=== PATIENT | female | born 1965 | race African-American/Black ===

== ENCOUNTER 2020-03-28 18:11 | Outpatient (CLI) | payer BC, SELFPAY ==
--- NOTE | ~2020-03-28 | XR_ITS ---
EXAMINATION: XR chest 2V EXAM DATE: 03/28/2020 18:31 INDICATION: Asthma. Cough for 3 months. TECHNIQUE: Frontal and lateral projections of the chest obtained and reviewed. Comparison is made to prior examination from 05/17/2019. FINDINGS: The lungs are clear. There are no pleural effusions. The cardiomediastinal silhouette is within normal limits. There is no pneumothorax suspected. The bones and soft tissues are unremarkab le. IMPRESSION: No acute cardiopulmonary findings. Reviewed, dictated and finalized at location A.
== END 2020-03-28 18:12 | disposition home or self-care (01) ==
PROVIDERS: PCP Internal Medicine; Visit Provider Internal Medicine
DX: J45.909 Unspecified asthma, uncomplicated (principal)
CPT/HCPCS: 71046

== ENCOUNTER 2020-06-12 11:33 | Outpatient (CLI) | payer BC, SELFPAY ==
--- NOTE | ~2020-06-12 | MM_ITS ---
EXAMINATION: MM screening alyse BI w linda HISTORY: Screening mammogram TECHNIQUE: Craniocaudal and mediolateral oblique 3-D tomosynthesis images were obtained and synthetic 2-D images were generated. Bilateral rotated lateral cc views. ...CAD analysis was submitted and int erpreted. COMPARISON: 12/14/2017, 07/18/2015, 05/30/2014 bilateral digital screening mammogram examinations BREAST PARENCHYMAL COMPOSITION: The breasts are heterogeneously dense, which may obscure small masses . FINDINGS: There is no evidence of suspicious mass, calcification, or architectural distortion to sugg est malignancy in either breast. There has been no suspicious interval change. IMPRESSION: 1. No mammographic evidence of malignancy. 2. Recommend routine screening mammography in one year. BI-RADS Category 1: Negative Reviewed, dictated and finalized at location A. 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
== END 2020-06-12 11:34 | disposition home or self-care (01) ==
PROVIDERS: PCP Internal Medicine; Visit Provider Obstetrics & Gynecology
DX: Z12.31 Encounter for screening mammogram for malignant neoplasm of breast (principal)
CPT/HCPCS: 77063; 77067

== ENCOUNTER 2020-09-25 16:26 | Outpatient (CLI) | payer BC, SELFPAY | END 2020-09-25 16:27 | disposition home or self-care (01) | LOC: ANHCOVIDVC 16:26 | PROVIDERS: PCP Internal Medicine | DX: Z23 Encounter for immunization (principal) | CPT/HCPCS: 0001A; 91300 ==

== ENCOUNTER 2020-10-16 16:29 | Outpatient (CLI) | payer BC, SELFPAY | END 2020-10-16 16:30 | disposition home or self-care (01) | LOC: ANHCOVIDVC 16:29 | PROVIDERS: PCP Internal Medicine | DX: Z23 Encounter for immunization (principal) | CPT/HCPCS: 0002A; 91300 ==

== ENCOUNTER 2021-03-05 02:05 | Day surgery (SDC) | payer BC, SELFPAY ==
[2021-03-05 08:05] VITALS: BP 132/73; PULSE 89; RESP 20; TEMP 36.3; O2SAT 99; BMI 33.9
[2021-03-05] MEDS: LACTATED RINGERS 1,000 ML 150 ML IV CONT (08:20)
--- NOTE | 2021-03-05 08:24 | WPDGICN ---
Assessment and Plan Assessment and plan (1) Encounter for screening colonoscopy: Code(s): Z12.11 - Encounter for screening for malignant neoplasm of colon Status: Acute Assessment and Plan: Patient presents for screening colonoscopy. Further recommendations will be given after endoscopy. GI Consult Note Consult date/time: 03/05/21 08:24 HPI: Radha Fay is a 55 year old female Presents for screening colonoscopy. Patient's last exam was 10 years ago. Patient states that her current weight appetite bowel movements are normal. Patient denies abdominal pain. She has had no bleeding. Family history is noncontributory. Review of Systems Review of Systems: All systems reviewed & are unremarkable except as noted in HPI and below PMFSH Past Medical History Medical History Acid reflux Elevated lipids Ganglion cyst Hypertension Migraines Surgical History Surgical History H/O left wrist surgery H/O shoulder surgery History of appendectomy History of breast biopsy History of hysterectomy, supracervical [place] teeth removed Family History Family History Mother Hypertension Sibling Hypertension Family history of glaucoma Other Family history of malignant neoplasm of breast Social History Social History (Updated 11/26/20 @ 10:08 by Nickie Castillo MA) Smoking status: Never smoker Second hand tobacco smoke exposure: No Alcohol intake: former Drinks per week: 1 Substance use: never Living arrangements: with family Gender identity (if verbalized by the patient): Female Spiritual care concerns: No Meds Home Medications and Allergies Home Medications Medication Instructions Recorded Confirmed Type [id number] ac 400 1 tablet PO DAILY 09/26/19 02/20/21 History mcg-calcium carb 500 mg-vit K1 20 mcg tablet azelastine 137 mcg (0.1 %) nasal 137 mcg NASAL Q12H PRN 90 Days #90 11/17/19 02/20/21 Rx spray aerosol ml fluticasone propionate 50 1 spray NASAL BID PRN 90 Days 11/17/19 02/20/21 Rx mcg/actuation nasal #54.6 ml spray,suspension cetirizine 10 mg capsule 10 mg PO DAILY 10/10/20 02/20/21 History hydrochlorothiazide 12.5 mg tablet 12.5 mg PO DAILY #90 tablet 11/26/20 02/20/21 Rx losartan 100 mg tablet 100 mg PO DAILY #90 tablet 11/26/20 02/20/21 Rx omeprazole 40 mg capsule,delayed 40 mg PO DAILY #90 cap 11/26/20 02/20/21 Rx release potassium chloride 20 mEq 20 meq PO DAILY #90 tablet 11/26/20 02/20/21 Rx tablet,extended release cyclobenzaprine 5 mg tablet 5 mg PO TID PRN #90 tablet 12/02/20 02/20/21 Rx cholecalciferol (vitamin D3) 50,000 unit PO WEEKLY 02/20/21 02/20/21 History albuterol sulfate 90 mcg/actuation 2 puff INHALATION Q6H PRN #8.5 gm 02/28/21 Rx aerosol inhaler benzonatate 200 mg capsule 200 mg PO TID PRN #90 cap 02/28/21 Rx Allergies Allergy/AdvReac Type Severity Reaction Status Date / Time codeine Allergy Unknown Dizziness Verified 03/05/21 08:04 morphine Allergy Unknown Dizziness Verified 03/05/21 08:04 Vital Signs Vital Signs - 24 hr 03/05/21 08:05 Temperature 97.4 F L Pulse Rate 89 Respiratory Rate 20 Blood Pressure 132/73 Pulse Oximetry 99 Exam Narrative: Physical exam reveals patient be alert. Vital signs are stable. HEENT exam is unremarkable. Patient is anicteric. Lungs are clear to auscultation and percussion. Heart is without murmur or extra sounds. Abdominal exam bowel sounds are present soft nontender with no organomegaly.
--- NOTE | 2021-03-05 08:31 | WPDANESEPPF ---
Anes - Initial Pre Proc Eval Procedure: Operation Date: 03/05/21 09:15 Proposed Procedures p Screening Colonoscopy - Lei Lyles MD Date/Time: 03/05/21 08:31 Surgeon: Lei Lyles MD Pre Op Diagnosis: neoplasm screening Patient Data Age: 55 Gender: F Height: 1.68 m Weight: 95.4 kg Last Vital Signs Temp 36.3 C L 03/05/21 08:05 Pulse 89 03/05/21 08:05 Resp 20 03/05/21 08:05 BP 132/73 03/05/21 08:05 Pulse Ox 99 03/05/21 08:05 Allergies Allergy/AdvReac Type Severity Reaction Status Date / Time codeine Allergy Unknown Dizziness Verified 03/05/21 08:04 morphine Allergy Unknown Dizziness Verified 03/05/21 08:04 Home Medications Medication Instructions Recorded Confirmed Type [id number]-[id number] ac 400 1 tablet PO DAILY 09/26/19 02/20/21 History mcg-calcium carb 500 mg-vit K1 20 mcg tablet azelastine 137 mcg (0.1 %) nasal 137 mcg NASAL Q12H PRN 90 Days #90 11/17/19 02/20/21 Rx spray aerosol ml fluticasone propionate 50 1 spray NASAL BID PRN 90 Days 11/17/19 02/20/21 Rx mcg/actuation nasal #54.6 ml spray,suspension cetirizine 10 mg capsule 10 mg PO DAILY 10/10/20 02/20/21 History hydrochlorothiazide 12.5 mg tablet 12.5 mg PO DAILY #90 tablet 11/26/20 02/20/21 Rx losartan 100 mg tablet 100 mg PO DAILY #90 tablet 11/26/20 02/20/21 Rx omeprazole 40 mg capsule,delayed 40 mg PO DAILY #90 cap 11/26/20 02/20/21 Rx release potassium chloride 20 mEq 20 meq PO DAILY #90 tablet 11/26/20 02/20/21 Rx tablet,extended release cyclobenzaprine 5 mg tablet 5 mg PO TID PRN #90 tablet 12/02/20 02/20/21 Rx cholecalciferol (vitamin D3) 50,000 unit PO WEEKLY 02/20/21 02/20/21 History albuterol sulfate 90 mcg/actuation 2 puff INHALATION Q6H PRN #8.5 gm 02/28/21 Rx aerosol inhaler benzonatate 200 mg capsule 200 mg PO TID PRN #90 cap 02/28/21 Rx Patient hx anesthesia problems: none Family hx anesthesia problems: none PMFSH Past Medical History Medical History Acid reflux Elevated lipids Ganglion cyst Hypertension Migraines Surgical History Surgical History H/O left wrist surgery H/O shoulder surgery History of appendectomy History of breast biopsy History of hysterectomy, supracervical [place] teeth removed Family History Family History Mother Hypertension Sibling Hypertension Family history of glaucoma Other Family history of malignant neoplasm of breast Social History Social History Smoking status: Never smoker Second hand tobacco smoke exposure: No Alcohol intake: former Drinks per week: 1 Substance use: never Living arrangements: with family Gender identity (if verbalized by the patient): Female Spiritual care concerns: No Anes - Eval Final PreProcedure Day of Procedure 03/05/21 08:31 Patient weight: obese Heart: regular rate and rhythm Lungs: clear to auscultation Airway: Mallampati scale class II Neurological: alert and oriented Last oral intake: >/= 8 hours ASA classification: III Emergent: no Anesthetic plan: proceed Anesthesia type and monitoring: general GIVS and standard monitoring Informed Consent: The patient's anesthetic plan and its attendant risks and benefits were discussed with the patient/family/POA. Questions were solicited and answers provided to the satisfaction of the patient/family/POA.
[2021-03-05 09:16] VITALS: BP 118/72; PULSE 82; RESP 18; O2SAT 99
[2021-03-05 09:26] VITALS: BP 123/76; PULSE 78; RESP 18; O2SAT 100
[2021-03-05 09:36] VITALS: BP 115/63; PULSE 77; RESP 17; O2SAT 100
== END 2021-03-05 09:54 | disposition home or self-care (01) ==
PROVIDERS: PCP Internal Medicine; Visit Provider Internal Medicine Gastroenterology
PROC: 0DJD8ZZ Inspection of Lower Intestinal Tract, Via Natural or Artificial Opening Endoscopic (ICD-10-PCS; CPT 45378; principal; 2021-03-05 09:15)
DX: Z12.11 Encounter for screening for malignant neoplasm of colon (principal); D12.2 Benign neoplasm of ascending colon; D12.3 Benign neoplasm of transverse colon; K57.30 Diverticulosis of large intestine without perforation or abscess without bleeding; K64.8 Other hemorrhoids; K21.9 Gastro-esophageal reflux disease without esophagitis; I10 Essential (primary) hypertension; Z79.51 Long term (current) use of inhaled steroids; E66.9 Obesity, unspecified; Z68.33 Body mass index [BMI] 33.0-33.9, adult
CPT/HCPCS: 45385; 88305; J2704; J7120

== ENCOUNTER 2021-07-08 07:56 | Outpatient (CLI) | payer BC, SELFPAY ==
--- NOTE | ~2021-07-08 | MM_ITS ---
EXAMINATION: MM screening [facility] BI w linda HISTORY: Screening mammogram TECHNIQUE: Craniocaudal and mediolateral oblique 3-D tomosynthesis images were obtained and synthetic 2-D images were generated. CAD analysis was submitted and interpreted. COMPARISON: 06/12/2020, 12/05/1917, 07/18/2015 BREAST PARENCHYMAL COMPOSITION: The breasts are heterogeneously dense, which may obscure small masses . FINDINGS: RIGHT BREAST: There is no evidence of suspicious mass, calcification, or architectural distortion to suggest malignancy. There has been no significant interval change. LEFT BREAST: There is a round obscured mass best appreciated in the middle third of the breast just a dio the nipple axis IV.3 cm from the nipple on mediolateral oblique tomosynthesis image 41/85. IMPRESSION: 1. Left breast mass. 2. Additional mammographic views and possible breast ultrasound are recommended. BI-RADS Category 0: Incomplete: Needs additional imaging evaluation. Reviewed, dictated and finalized at location A. FITTER IMPRESSION: 1. Left breast mass. 2. Additional mammographic views and possible breast ultrasound are recommended . BI-RADS Category 0: Incomplete: Needs additional imaging evaluation.
== END 2021-07-08 07:57 | disposition home or self-care (01) ==
PROVIDERS: PCP Internal Medicine; Visit Provider Obstetrics & Gynecology
DX: Z12.31 Encounter for screening mammogram for malignant neoplasm of breast (principal); R92.8 Other abnormal and inconclusive findings on diagnostic imaging of breast
CPT/HCPCS: 77063; 77067

== ENCOUNTER 2021-07-29 12:20 | Outpatient (CLI) | payer BC, SELFPAY ==
--- NOTE | ~2021-07-29 | MMUS_ITS ---
EXAMINATION: MM diagnostic alyse LT w lidna, US breast LT complete HISTORY: Follow-up left breast mass TECHNIQUE: Additional 3-D tomosynthesis images of the left breast were performed and synthetic 2-D im ages were generated. CAD analysis was submitted and interpreted. High resolution complete left breast ultrasound was performed. COMPARISON: Comparison to multiple prior studies sequentially, with oldest reviewed study dated 05/19. BREAST PARENCHYMAL COMPOSITION: The breasts are heterogenously dense, which may obscure small masses. FINDINGS: MAMMOGRAPHIC FINDINGS: There is a small mass in the upper aspect of the left breast anteriorly. There are no suspicious calc ifications or architectural distortion. ULTRASOUND: Complete bilateral US of all 4 quadrants of the left and retroareolar region was reviewed. There are multiple simple cyst of the left breast, largest measuring 9 mm at 12:00, 3 cm from the nipple. No green spicious masses to suggest malignancy. IMPRESSION: 1. No evidence for malignancy in the left breast. Benign cysts. 2. Routine yearly screening mammogram and regular clinical breast examination are recommended. BI-RADS Category 2: Benign finding(s). Reviewed, dictated and finalized at location A. 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 No evidence for malignancy in the left breast. Benign cysts. 2. Routine yearly screening mammogram and regular clinical breast examination a re recommended. BI-RADS Category 2: Benign finding(s).
== END 2021-07-29 12:21 | disposition home or self-care (01) ==
PROVIDERS: PCP Internal Medicine; Visit Provider Obstetrics & Gynecology
DX: R92.8 Other abnormal and inconclusive findings on diagnostic imaging of breast (principal)
CPT/HCPCS: 76641; 77061; 77065; G0279

== ENCOUNTER 2022-10-21 08:38 | Outpatient (CLI) | payer BC, SELFPAY ==
--- NOTE | ~2022-10-21 | MM_ITS ---
EXAMINATION: MM screening alyse BI w linda HISTORY: Screening mammogram TECHNIQUE: Craniocaudal and mediolateral oblique 3-D tomosynthesis images were obtained and synthetic 2-D images were generated. CAD analysis was submitted and interpreted. COMPARISON: 07/29/2021 diagnostic left mammogram and complete left breast ultrasound 07/08/2021, 06/12/2020 bilateral screening mammogram examinations BREAST PARENCHYMAL COMPOSITION: The breasts are heterogeneously dense, which may obscure small masses . FINDINGS: There is no evidence of suspicious mass, calcification, or architectural distortion to sugg est malignancy in either breast. There has been no suspicious interval change. IMPRESSION: 1. No mammographic evidence of malignancy. 2. Recommend routine screening mammography in one year. BI-RADS Category 1: Negative Reviewed, dictated and finalized at location A.
== END 2022-10-21 08:39 | disposition home or self-care (01) ==
LOC: ANHIMG 08:41
PROVIDERS: PCP Internal Medicine; Visit Provider Obstetrics & Gynecology
DX: Z12.31 Encounter for screening mammogram for malignant neoplasm of breast (principal)
CPT/HCPCS: 77063; 77067

== ENCOUNTER 2023-02-18 09:18 | Outpatient (CLI) | payer BC, SELFPAY ==
--- NOTE | ~2023-02-18 | US_ITS ---
Limited Abdominal Sonogram: Real-time sonographic imaging of the right upper quadrant was performed. Clinical History: Right upper quadrant pain Findings: The liver appears echogenic, with no evidence of mass lesion or bile duct dilatation. Main portal vein demonstrates normal direction of flow. The gallbladder is well distended, and appears no rmal with no evidence of gallstone or wall thickening. The common bile duct measures 5 mm. The visua lized pancreas, aorta, and IVC are unremarkable. Impression: Diffuse fatty infiltration of liver. Reviewed, dictated and finalized at location M. Impression: Diffuse fatty infiltration of liver.
== END 2023-02-18 09:19 | disposition home or self-care (01) ==
PROVIDERS: PCP Family Medicine; Visit Provider Nurse Practitioner Family
DX: R10.11 Right upper quadrant pain (principal); K76.0 Fatty (change of) liver, not elsewhere classified
CPT/HCPCS: 76705

== ENCOUNTER 2023-06-14 12:41 | Outpatient (CLI) | payer BC, SELFPAY ==
--- NOTE | ~2023-06-14 | XR_ITS ---
EXAMINATION: XR chest 2V 06/14/2023 14:16 INDICATION: Shortness of breath PROCEDURE: 2 view chest COMPARISON: 03/28/2020 FINDINGS: The lungs are clear. The cardiomediastinal silhouette is within normal limits. There are no pleural effusions. There is no pneumothorax suspected. Calcified granuloma right lung base. IMPRESSION: 1: NO ACUTE CARDIOPULMONARY DISEASE. Reviewed, dictated and finalized at location B. ADVOCATE
--- NOTE | 2023-06-14 12:44 | ECHO_ITS ---
Patient Info Name: Radha Fay Age: 58 years : 1965 Gender: Female Ht: 67 in Wt: 211 lbs BSA: 2.16 m2 HR: 88 bpm BP: 133 / 92 mmHg Heart Rhythm: Sinus Rhythm Technical Quality: Fair Exam Date: 06/14/2023 12:48 PM Exam Location: Echo Lab Patient Status: Outpatient Admit Date: 06/14/2023 Staff Ordering Physician: Marcy Barrios APRN Towboat Engineer: Kelly Brunner RDCS Attending Provider: Marcy Barrios APRN Referring Physician: Sophie NAYAK; Exam Type: CA echo doppler color flow Study Info Indications R06.02 - Shortness of breath Complete two-dimensional, color flow and Doppler transthoracic echocardiogram is performed. Summary 1. Complete two-dimensional, color flow and Doppler transthoracic echocardiogram is performed. 2. Left ventricular chamber dimension is normal. 3. Left ventricular systolic function is normal, estimated at 60-65%. 4. The left ventricular diastolic function is grade I diastolic dysfunction. 5. E/e' 11 is mildly elevated. 6. There is mild aortic valve sclerosis. 7. There is trace mitral valve regurgitation. 8. There is trace tricuspid valve regurgitation. 9. No pulmonary hypertension, estimated pulmonary arterial systolic pressure is 32 mmHg. 10. There is trace pulmonic regurgitation. Left Ventricle E/e' 11 is mildly elevated. Left ventricular chamber dimension is normal. Left ventricular systolic function is normal, estimated at 60-65%. The left ventricular diastolic function is grade I diastolic dysfunction. Right Ventricle Right ventricular systolic function is normal and with normal TAPSE 3.0 cm. Right ventricular chamber dimension is normal. Left Atria Left atrial chamber dimension is normal. Right Atria Right atrial chamber dimension is normal. Aortic Valve The aortic valve is trileaflet. There is mild aortic valve sclerosis. There is no aortic valve stenosis. There is no aortic valve regurgitation. Pulmonic Valve There is trace pulmonic regurgitation. Mitral Valve There is no mitral valve stenosis. There is trace mitral valve regurgitation. Tricuspid Valve There is trace tricuspid valve regurgitation. No pulmonary hypertension, estimated pulmonary arterial systolic pressure is 32 mmHg. Pericardium/Pleural There is no pericardial effusion. Inferior Vena Cava Normal inferior vena cava with >50% collapse upon inspiration consistent with normal right atrial pressure, 5 mmHg. Aorta The aortic root size at the sinus of Valsalva is normal. Left Ventricular Outflow Tract Name Value Normal LVOT 2D LVOT Diameter 2.0 cm LVOT Doppler LVOT Peak Gradient 5 mmHg LVOT Mean Gradient 2 mmHg LVOT VTI 21 cm LVOT VTI/AV VTI Ratio 0.5 LVOT Stroke Volume 65 ml LVOT CO 4.5 l/min LVOT CI 2.1 l/min/m2 Pulmonic Valve Name Value Normal RVOT Doppler
== END 2023-06-14 12:42 | disposition home or self-care (01) ==
LOC: ANHCARD 12:42
PROVIDERS: PCP Nurse Practitioner Family; Visit Provider Nurse Practitioner Family
DX: R06.02 Shortness of breath (principal); R07.9 Chest pain, unspecified
CPT/HCPCS: 71046; 93306

== ENCOUNTER 2023-06-25 10:10 | Outpatient (CLI) | payer BC, SELFPAY ==
--- NOTE | 2023-06-29 11:10 | WPDPFTINT ---
PFT Procedure Performed PFT Procedure Performed Spirometry with Pre/Post Bronchodilator Plethysmography (Lung Vol) Diffusing Cap (DLCO) PFT Interpretation DOS: 06/25/2023 REQUESTING: Marcy Barrios APRN REASON FOR TESTING: shortness of breath PULMONARY FUNCTION TESTS Results are reliable and reproducible. Spirometry: pre bronchodilator FEV1 is 2.19 L, 92% predicted, normal. Pre bronchodilator FVC 2.46 L, 82%, normal. FEV1/ FVC ratio 89%. After bronchodilator administration there was a 14% drop in the FEV1, there is an 11% increase in the FVC. Post bronchodilator FVC is 2.74 L, 91% predicted. After bronchodilator the FEV1 is 1.87 L, 79% predicted. The FEV1 /FVC ratio is 68%. Lung volumes: Total lung capacity 3.54 L, 73% predicted, low consistent with mild restriction. Residual volume 1.07 L, 54%, below normal. RV / TLC is 30%, low end of normal. Diffusion: DLCO is 13.5, 59% consistent with moderate diffusion impairment. DLCO / VA is 5.17, 120%, normal range. Flow volume loop: The flow volume loop is not reproducible. IMPRESSION: This study shows normal spirometry with a paradoxical drop in flows after bronchodilator administration, mild restriction which is new and a moderate decrease in diffusion. Compared to a prior study 10/27/2011, spirometry is similar including a paradoxical drop in flows after bronchodilator, restriction is new, and the decrease in diffusion has progressed mildly. The FEV1 was 2.47 L, 87% predicted, the FVC was 2.90 L, 78% predicted with a normal FEV1/ FVC ratio 85%. After bronchodilator, there was a 8% drop in the FEV1, similarly she had a drop of 14% in FEV1 on the current test. The total lung capacity was 4.86 L, 87%, showing a greater than expected drop in the total lung capacity on the current test. The residual volume was 80% predicted now 54% predicted and the RV/TLC was slightly low 32%, currently 30% so also low. Diffusion is lower now, was 65% predicted now 59% predicted. There is correction for alveolar volume both in the past and now. Bailee Redd MD
== END 2023-06-25 10:11 | disposition home or self-care (01) ==
LOC: ANHPFT 10:11
PROVIDERS: PCP Nurse Practitioner Family; Visit Provider Nurse Practitioner Family
DX: R06.02 Shortness of breath (principal)
CPT/HCPCS: 94060; 94726; 94729

== ENCOUNTER 2023-08-03 08:35 | Outpatient (CLI) | payer BC, SELFPAY ==
--- NOTE | ~2023-08-03 | CT_ITS ---
CT Scan of the Chest without Contrast: Clinical Indication: Other disorder of lung Technique: Contiguous sections were acquired throughout the chest without intravenous contrast. Dose reduction technique was used on this scan by utilizing automated exposure control and iterative recon struction technique. The dose-length product (DLP) was 282.67 mGy-cm. Findings: There is no evidence of any significant mediastinal, hilar or axillary lymphadenopathy. Calcified med iastinal lymph nodes are noted. The mediastinal soft tissues otherwise appear normal. There is no evidence of pleural or pericardial effusion. The lungs are clear, aside from calcified right basilar granuloma. Images through the upper abdomen reveal no abnormalities. Impression: No acute abnormality. Evidence of prior granulomatous disease. Reviewed, dictated and finalized at location . NESS DEVELOPMENT SPECIALIST Impression: No acute abnormality. Evidence of prior granulomatous disease.
== END 2023-08-03 08:36 | disposition home or self-care (01) ==
LOC: ANHIMG 08:37
PROVIDERS: PCP Nurse Practitioner Family; Visit Provider Physician Assistant
DX: J98.4 Other disorders of lung (principal)
CPT/HCPCS: 71250

== ENCOUNTER 2023-10-08 13:58 | Outpatient (CLI) | payer BC, SELFPAY ==
--- NOTE | ~2023-10-08 | MM_ITS ---
EXAMINATION: MM screening [facility] BI w linda HISTORY: Screening TECHNIQUE: Craniocaudal and mediolateral oblique 3-D tomosynthesis images were obtained and synthetic 2-D images were generated. CAD analysis was submitted and interpreted. COMPARISON: Comparison to multiple prior studies sequentially, with oldest reviewed study dated 06/20. BREAST PARENCHYMAL COMPOSITION: Dense: The breasts are heterogeneously dense, which may obscure small masses FINDINGS: There is a new mass in the upper central aspect of the left breast which is obscured by fib roglandular tissue. The right breast is stable without evidence for malignancy. IMPRESSION: 1. New left breast mass. 2. Additional mammographic views and possible breast ultrasound are recommended. BI-RADS Category 0: Incomplete: Needs additional imaging evaluation. Reviewed, dictated and finalized at location A. IMPRESSION: 1. New left breast mass. 2. Additional mammographic views and possible breast ultrasound are recommended . BI-RADS Category 0: Incomplete: Needs additional imaging evaluation.
== END 2023-10-08 13:59 | disposition home or self-care (01) ==
LOC: ANHIMG 14:02
PROVIDERS: PCP Nurse Practitioner Family; Visit Provider Obstetrics & Gynecology
DX: Z12.31 Encounter for screening mammogram for malignant neoplasm of breast (principal); R92.8 Other abnormal and inconclusive findings on diagnostic imaging of breast
CPT/HCPCS: 77063; 77067

== ENCOUNTER 2023-10-28 08:49 | Outpatient (CLI) | payer BC, SELFPAY ==
--- NOTE | ~2023-10-28 | DEXA_ITS ---
Bone Density Report Name: EDA JOSE Age: 58 Sex: Female Ethnicity: White Date of : 1965 Indication: postmenopausal; screening for osteoporosis; height loss; hysterectomy; Referring Provider: MAME RENTERIA Study: Bone densitometry was performed. Exam Date: October 28, 2023 Accession number: [id number] Bone Density: Region BMD T-score Z-score Classification AP Spine(L1-L4) 1.041 -0.1 1.4 Normal Femoral Neck (Left) 0.829 -0.2 1.1 Normal Total Hip (Left) 0.999 0.5 1.4 Normal Femoral Neck (Right) 0.876 0.2 1.5 Normal Total Hip (Right) 0.988 0.4 1.3 Normal Total Hip Mean 0.993 0.5 1.4 Normal World Health Organization criteria for BMD impression classify patients as: Normal (T-score at or above -1.0), Osteopenia (T-score between -1.0 and -2.5), or Osteoporosis (T-score at or below -2.5). 10-year Fracture Risk: FRAX not reported because: All T-scores for Spine Total, Hip Total, Femoral Neck at or above -1.0 Previous Exams: Region Exam Age BMD T-score BMD Change BMD Change Date g/cm2 vs Baseline vs Previous AP Spine (L1-L4) 10/28/2023 58 1.041 -0.1 -0.031 (-2.9%) -0.060 (-5.5%) 11/16/2015 50 1.101 0.5 0.029 (2.7%)# 0.029 (2.7%)# 05/29/2013 48 1.072 0.2 Total Hip(Left) 10/28/2023 58 0.999 0.5 -0.012 (-1.1%) 0.020 (2.1%) 11/16/2015 50 0.979 0.3 -0.032 (-3.1%) -0.032 (-3.1%) 05/29/2013 48 1.010 0.6 Total Hip(Right) 10/28/2023 58 0.988 0.4 -0.030 (-3.0%) 0.010 (1.1%) 11/16/2015 50 0.977 0.3 -0.040 (-4.0%) -0.040 (-4.0%) 05/29/2013 48 1.018 0.6 *Denotes significance at 95% confidence level, LSC for AP Spine = 0.022 g/cm2, LSC for Total Hip = 0.027 g/cm2 # Denotes dissimilar scan types or analysis methods Clinical Information Provided by Patient: Has used the following medications: multivitamin Has the following medical conditions: Hysterectomy Patient maximum height was 67 Menopause Age: 44 No regular weight bearing exercise Drinks caffeinated beverages Onset of menses at age 12 Number of children 0 Impression: The patient has normal bone mass. The BMD for the AP Spine (L1-L4) decreased, changing by -5.5% since the last DXA exam. Discussion: BONE DENSITY IS ABOVE THE MINIMUM DESIRABLE LEVEL AT ALL SKELETAL SITES TESTED. This patient?s bone mineral density is above the minimum desirable level (T-score -1.0 or better) at all sites measured. The patient should
== END 2023-10-28 08:50 | disposition home or self-care (01) ==
PROVIDERS: PCP Nurse Practitioner Family; Visit Provider Nurse Practitioner Family
DX: Z13.820 Encounter for screening for osteoporosis (principal)
CPT/HCPCS: 77080

== ENCOUNTER 2023-11-09 10:19 | Outpatient (CLI) | payer BC, SELFPAY ==
--- NOTE | ~2023-11-09 | MMUS_ITS ---
EXAMINATION: MM diagnostic alyse LT w linda, US breast LT complete HISTORY: TECHNIQUE: Additional 3-D tomosynthesis images of were performed and synthetic 2-D images were genera christopher. CAD analysis was submitted and interpreted. High resolution breast ultrasound was performed. COMPARISON: None FINDINGS: MAMMOGRAPHIC FINDINGS: There is an 11 mm circular mass with halo sign in the upper mid left breast anteriorly, benign in beba ear[place], suggestive of cyst. There is heterogeneously dense stroma of the left breast which may obscure additional masses. No suspicious mass, architectural distortion, malignant calcification, skin thickening or retraction is detected. ULTRASOUND: Multiple scattered cysts are noted, circumscribed, sonolucent, with through transmission posterior en hancement this includes an 11 x 7 x 12 mm simple cyst at 12:00 4 cm from the nipple corresponding to the mammographic finding. There are multiple additional smaller cysts. IMPRESSION: 1. Multiple benign cysts; no mammographic or sonographic evidence of malignancy 2. Routine annual mammographic screening is recommended BI-RADS Category 2: Benign finding(s). Reviewed, dictated and finalized at location A. IMPRESSION: 1. Multiple benign cysts; no mammographic or sonographic evidence of malignancy 2. Routine annual mammographic screening is recommended BI-RADS Category 2: Benign finding(s).
== END 2023-11-09 10:20 | disposition home or self-care (01) ==
LOC: ANHIMG 10:21
PROVIDERS: PCP Nurse Practitioner Family; Visit Provider Obstetrics & Gynecology
DX: R92.8 Other abnormal and inconclusive findings on diagnostic imaging of breast (principal)
CPT/HCPCS: 76641; 77061; 77065; G0279

== ENCOUNTER 2024-04-24 12:02 | Outpatient (CLI) | payer BC, SELFPAY | END 2024-04-24 12:03 | disposition home or self-care (01) | PROVIDERS: PCP Nurse Practitioner Family; Visit Provider Nurse Practitioner Family | DX: M25.562 Pain in left knee (principal) | CPT/HCPCS: 73564 ==

== ENCOUNTER 2024-06-23 10:28 | Outpatient (CLI) | payer BC, SELFPAY ==
--- NOTE | ~2024-06-23 | MR_ITS ---
MRI of the left knee Clinical history: Pain Technique: Coronal proton density and proton density-weighted images, sagittal proton-density and T2 fat-sat images, and axial proton-density fat-saturated images were acquired. Findings: Anterior and posterior cruciate ligaments are intact. Medial collateral ligament and the la teral collateral ligament complex are intact. Popliteus tendon is intact. Medial and lateral menisci are intact, without evidence of tear. Articular cartilage is well preserved throughout the knee. Bone marrow signals are unremarkable. Extensor mechanism is intact. Small joint effusion present. Minimal Hernandes's cyst. Impression: Small joint effusion with minimal Hernandes's cyst. No other significant abnormalities. Reviewed, dictated and finalized at location . H BLEACHING RANGE TENDER Impression: Small joint effusion with minimal Hernandes's cyst. No other significant abnormalities.
--- NOTE | ~2024-06-23 | XR_ITS ---
3 VIEWS LUMBAR SPINE Ordering provider: Marcy Barrios APRN History: . M54.50 - Low back pain, unspecified . Comparison: None. FINDINGS: VERTEBRAL BODIES: No visible fracture or subluxation. DISK SPACES: Normal. SOFT TISSUES: Normal. IMPRESSION: No acute osseous abnormality lumbar spine. Reviewed, dictated and finalized at location A. GER PROCESS IMPROVEMENT
== END 2024-06-23 10:29 | disposition home or self-care (01) ==
LOC: MICIMG 10:29
PROVIDERS: PCP Nurse Practitioner Family; Visit Provider Nurse Practitioner Family
DX: R29.898 Other symptoms and signs involving the musculoskeletal system (principal); M54.50 Low back pain, unspecified; M25.462 Effusion, left knee
CPT/HCPCS: 72100; 73721

== ENCOUNTER 2024-12-08 09:39 | Outpatient (CLI) | payer BC, SELFPAY ==
--- NOTE | ~2024-12-08 | MM_ITS ---
EXAMINATION: MM screening alyse BI w linda HISTORY: Screening TECHNIQUE: Craniocaudal and mediolateral oblique 3-D tomosynthesis images were obtained and synthetic 2-D images were generated. CAD analysis was submitted and interpreted. COMPARISON: Comparison to multiple prior studies sequentially, with oldest reviewed study dated 05/20. BREAST PARENCHYMAL COMPOSITION: Dense: The breasts are heterogeneously dense, which may obscure small masses FINDINGS: The right breast is stable without evidence for malignancy. There are developing asymmetrie s in the mid outer and mid inner aspect of the left breast, best seen on CC image. IMPRESSION: 1. Developing left breast asymmetries. 2. Additional mammographic views and possible breast ultrasound are recommended. BI-RADS Category 0: Incomplete: Needs additional imaging evaluation. Reviewed, dictated and finalized at location [] IMPRESSION: 1. Developing left breast asymmetries. 2. Additional mammographic views and possible breast ultrasound are recommended . BI-RADS Category 0: Incomplete: Needs additional imaging evaluation.
--- OUTSIDE RECORDS SUMMARY | 2024-12-08 09:43 | XMS_ITS | Clinical Summary ---
Author Organization [facility] Mikala frances Address [address] [place] [address] Phone Care Team Providers Care Senior Research Executive Name Role Phone Unavailable Primary Care Provider Unavailabl e Medications fluticasone (FLONASE) 50 MCG/ACT nasal spray as directed 0 06/21/2016 Active Cholecalciferol (VITAMIN D3) 5000 units capsule 1 tab/cap qday 0 06/21/2016 Active metoprolol succinate XL (TOPROL-XL) 25 MG 24 hr tablet 1 tab/cap qday 0 06/21/2016 Active Active Problems Problem Noted Date Diagnosed Date Abnormal result of kidney function study 016 Gastro-esophageal reflux disease without esophag itis 06/21/2016 Essential (primary) hypertension 06/21/2016 Other allergic rhinitis 06/21/2016 Family History Medical History Relation Comments Hypertensive disorder Mother Hypertensive disorder Sibling Kidney disease Neg Hx Kidney stone Neg Hx Relation Status Comments Mother Sibling Social History Tobacco Use Types Packs/Day Years Used Date Smoking Tobacco: Never Assessed Comments Unknown Sex and Gender Information Value Date Recorded Sex Assigned at Not on file Legal Sex Female 8:42 AM [facility] Gender Identity Not on file Sexual Orientation Not on file Last Filed Vital Signs Vital Sign Reading Time Taken Comments Blood Pressure 130/70 02/17/2017 12:01 AM CDT Sitting, Right Pulse - - Temperature 35.7 C (96.2 F) 02/17/2017 12:01 AM CDT Respiratory Rate - - Oxygen Saturation - - Inhaled Oxygen Concentration - - Weight 86.2 kg (190 lb) 02/17/2017 12:0 1 AM CDT Height 167.6 cm (5' 6 ) 02/17/2017 12:0 1 AM CDT Body Mass Index 30.67 02/17/2017 12:01 AM CDT Plan of Treatment Not on file
--- OUTSIDE RECORDS SUMMARY | 2024-12-08 09:43 | XMS_ITS | Data Portability ---
Author Organization [facility], Main Office Address [address] [facility] [address] [place] [phone] Assessment No assessment recorded. Plan of Treatment Reminders Order Date Submit Date Provider Last Modified By Organization Details Last Modified Time Details Appointments None record ed. Lab None record ed. Referral None record ed. Procedures None record ed. Surgeries None record ed. Imaging None record ed. Medication Orders None record ed. Patient TargetsNo targets recorded. Patient Instructions Encounter Date Encounter Id Patient Instructions Last Modified By Organization Details Last Modified Time 08/23/2023 [id number] Cautery to remaining DPNs face, and time le t,txd neck lesions. If more desired, she will do full tx to neck and chest , if desired. Wound care [email or web address]. [email or web address] Not available 08/23/2023 10:21:15 Reason for Referral None Reported. Problems Name Problem SNOMED Code Status Onset Date Resolution Date Notes Provider Name and Address Organization Details Recorded Time Benign neoplasm of skin of face 89448190 Active 2022 Jose Daniel Quinteros MD [address] [facility] [address], [place], [address], [facility] 3 15:33:07 Inflamed seborrheic keratosis 632153072 Active 2022 Jose Daniel Quinteros MD [address], [place], [address], [facility] 3 15:33:57 Skin tag 613264438 Active 2022 Jose Daniel Quinteros MD [address], [place], [address], [facility] 3 15:34:53 Dermatofibr indra of right lower limb 7249729087008 102 Active 2022 Jose Daniel Quinteros MD [address], [place], [address], [facility] 3 15:35:14 Dermatofibr indra of left lower limb 7024247185898 105 Active 2022 Jose Daniel Quinteros MD [address], [place], [address], [facility] 3 15:35:22 Problem Notes None recorded. Medical Equipment None Reported. Allergies Allergen ID Allergen Name Allergen Category Reaction Reaction Severity Criticality Documentation Date Start Date Code Code System Note Provider Name and Address Organization Details Recorded Time 6741 codeine medicatio n Not available Not available Not available 05/13/2023 2670 Rx[facility] [place] [facility] 15:11:21 6742 morphine medicatio n Not available Not available Not available 05/13/2023 7052 RxNorm [place] [facility] [place]:11:26 Medications Name Sig Start Date Stop Date Status Note LastModified by Organization Details LastModified Time azithromycin 250 mg tablet TAKE 2 TABLETS BY MOUTH TODAY, THEN TAKE 1 TABLET DAILY FOR 4 DAYS active Not Available Not Available No t Available ibuprofen 800 mg tablet TAKE 1 TABLET BY MOUTH TWICE A DAY NEEDED FOR PAIN active Not Available Not Available No t Available benzonatate 200 mg capsule TAKE ONE CAPSULE BY MOUTH THREE TIMES DAILY NEEDED FOR COUGH active Not Available Not Available No t Available prednisone 20 mg tablet TAKE 2 TABLETS BY MOUTH EVERY DAY FOR 5 DAYS active Not Available Not Available No t Available omeprazole 40 mg capsule,taylor yed release active Not Available Not Available Not Available lidocaine-pr ilocaine 2.5 %-2.5 % topical cream APPLY TO THE FACE 1 HOUR BEFORE APPOINTMENT AND 30 MINUTES BEFORE APPOINTMENT IF NECESSARY active Not Available Not Available No t Available azelastine 137 mcg (0.1 %) nasal spray active Not Available Not Available Not Available albuterol sulfate HFA 90 mcg/actuatio n aerosol inhaler active Not Available Not Available Not Available losartan 100 mg tablet TAKE 1 TABLET BY MOUTH ONCE DAILY active Not Available Not Available No t Available fluticasone propionate 50 mcg/actuatio n nasal spray,suspen jethro ADMINISTER 1 SPRAY INTO EACH NOSTRIL TWICE DAILY FOR NASAL CONGESTION active Not Available Not Available N ot Available metocloprami de 10 mg tablet TAKE ONE TABLET BY MOUTH EVERY 6 HOURS NEEDED TO NAUSEA AND VOMITING active Not Available Not Available No t Available amoxicillin 875 mg-potassium clavulanate 125 mg tablet TAKE 1 TABLET BY MOUTH TWICE DAILY active Not Available Not Available No t Available cyclobenzapr ine 5 mg tablet TAKE 1 TABLET BY MOUTH THREE TIMES DAILY NEEDED FOR MUSCLE SPASM active Not Available Not Available No t Available hydrochlorot hiazide 12.5 mg tablet TAKE 1 TABLET BY MOUTH ONCE DAILY active Not Available Not Available No t Available Paxlovid 150 mg-100 mg tablets in a dose pack (Moderate Renal Dose) TAKE PER PACKAGE DIRECTIONS active Not Available Not Available N ot Available Vitals None Recorded Social History None recorded. Functional Status None recorded. Mental Status None recorded. Family History Nothing Reported. Medical History No medical history recorded. Gynecological HistoryNo gynecological history recorded. Obstetrics History GPAL:G 0 P 0 0 0 0 Past Encounters Encounter ID Performer Location Encounter Start Date Encounter Closed Date Diagnosis/Indication Diagnosis SNOMED-CT Code Diagnosis ICD10 Code Diagnosis Note [id number] Jose Daniel Quinteros MD Main Office [address] [facility] [address] [place] [phone] 06/30/2023 10:02:01 07/26/2023 15:13:50 Benign neoplasm of skin of face 68065831 D23.39 [id number] Jose Daniel Quinteros MD Main Office [address] [facility] [address] [place] [phone] 08/23/2023 09:53:35 08/23/2023 10:22:02 Benign neoplasm of skin of face 10041392 D23.39 Health Concerns Section Related Observation LastModified by Organization Detai ls LastModified Time None Recorded Concern Status LastModified by Organization Details LastModified Time None Recorded Advance Directives Directive None Recorded Payers None recorded. Notes Date Note Type Note Provider Name and Address Organization Details Recorded Time 08/23/2023 text/html Cautery to DPNs. Jose Daniel Quinteros MD [address], [place], [phone], [facility] 08/23/2023 10:21:24 OBGyn Episode No OBEpisode recorded.
--- OUTSIDE RECORDS SUMMARY | 2024-12-08 09:43 | XMS_ITS | Referral Summary ---
Author Organization [facility] [address] Address [address] [place] [address] Care Team Providers Care Wire Welder Name Role Phone Marcy Barrios NP Primary Care Provider [phone] Allergies Active Allergy Reactions Criticality Noted Date Comments Codeine Dizziness Low 07/21/2023 Morphine Dizziness Low 07/21/2023 Medications azelastine (ASTELIN) 137 mcg (0.1 %) nasal spray spray 2 spray by intranasal route 2 times every day in each nostril 0 spray 0 5 Active omeprazole (PriLOSEC) 40 mg capsule take 1 capsule by oral route every day before a meal 30 3 5 Active fluticasone (FLONASE) 50 mcg/actuation nasal spray spray 2 spray by intranasal route every day in each nostril 0 spray 0 5 Active cetirizine (ZyrTEC) 10 mg tablet Take 1 tablet (10 mg total) by mouth daily Active cyclobenzaprine (FLEXERIL) 5 mg tablet Take 1 tablet (5 mg total) by mouth 3 (three) times a day as needed for muscle spasms Active hydroCHLOROthia zide (HYDRODIURIL) 12.5 mg tablet Take 1 tablet (12.5 mg total) by mouth daily Active losartan (COZAAR) 100 mg tablet Take 1 tablet (100 mg total) by mouth daily Active albuterol HFA (PROVENTIL HFA,VENTOLIN HFA,PROAIR HFA) 90 mcg/actuation inhaler Inhale 2 puffs every 6 (six) hours as needed for wheezing Active ferrous sulfate (IRON ORAL) Take 65 mg by mouth daily Active multivitamin tabletIndicatio ns:Vitamin Deficiency Prevention Take 1 tablet by mouth wetlands conservation laborer before breakfast Active UNABLE TO FIND Prevagen 1 tablet by mouth daily Active Active Problems Problem Noted Date Diagnosed Date Prediabetes 08/07/2024 Essential hypertension 06/21/2023 Resolved Problems Problem Noted Date Diagnosed Date Resolved Date Abnormal stress test 07/07/2023 025 Social History Tobacco Use Types Packs/Day Years Used Date Smoking Tobacco: Never Passive Smoke Exposure: Current Smokeless Tobacco: Never Tobacco Cessation:Counseling Given: Not Answered Alcohol Use Standard Drinks/Week Comments No 0 (1 standard drink = 0.6 oz pur e alcohol) AUDIT-C Answer Date Recorded Q1: How often do you have a drink containing alc ohol? Monthly or less 07/27/2023 Q2: How many drinks containi ng alcohol do you have on a typical day when you are drinking? 1 or 2 07/27/2023 Q3: How often do you have si x or more drinks on one occasion? Never 07/27/2023 Personal Safety Answer Date Recorded Have you ever been in or are you currently in a harmful physical or emotional relationship or is someone making you feel afraid or unsafe? Denies 07/27/2023 Comments No Sex and Gender Information Value Date Recorded Sex Assigned at Not on file Legal Sex Female 3:40 AM [facility] Gender Identity Not on file Sexual Orientation Not on file Last Filed Vital Signs Vital Sign Reading Time Taken Comments Blood Pressure 120/68 08/07/2024 10:07 AM [employer] Pulse 77 08/07/2024 10:07 AM [employer] Temperature 36.7 C (98.1 F) 07/27/2023 9:58 AM [facility] Respiratory Rate 18 07/27/2023 9:58 AM [facility] Oxygen Saturation 98% 08/07/2024 10:07 AM [facility] [employer] Inhaled Oxygen Concentration - - Weight 98.4 kg (217 lb) 08/07/2024 10:07 AM [facility] Height 170.2 cm (5' 7 ) 08/07/2024 10:07 AM [facility] [employer] Body Mass Index 33.99 08/07/2024 10:07 AM [facility] Plan of Treatment Not on file Medical Devices Implanted Type Area Archivist Political History Device Identifier Shelf Expiration Date Model / Serial / Lot [employer] Angio-Seal Vip 6fr Closere Device [id number] - [id number] Implanted:Qty: 1 on 07/27/2023 [id number] / / Insurance NPTV ACCESS CHOICE Advance Directives For more information, please contact: [phone] * Full Code (Latest Code Status on File) Date Activated Date Inactivated Comments 07/27/2023 3:13 PM 07/28/2023 5:55 PM Care Teams Wire Welder Relationship Specialty Start Date End Date Marcy Barrios NP [address] [place] [address] PCP - General Nurse Practitioner 07/15/23
--- OUTSIDE RECORDS SUMMARY | 2024-12-08 09:43 | XMS_ITS | Clinical Summary ---
Author Organization [facility] [address] Address [address] [place] [address] Care Team Providers Care Motor Scooter Repairer Name Role Phone Marcy Barrios NP Primary Care Provider [phone] Allergies Active Allergy Reactions Criticality Noted Date [...] Deficiency Prevention Take 1 tablet by mouth button sewer before breakfast Active UNABLE TO FIND Prevagen 1 tablet by mouth daily Active Active Problems Problem Noted Date Diagnosed Date Prediabetes 08/07/2024 Essential hypertension 06/21/2023 Resolved Problems Problem Noted Date Diagnosed Date Resolved Date Abnormal stress test 07/07/2023 025 Surgical History Surgery Date Site/Laterality Comments APPENDECTOMY Appendectomy HYSTERECTOMY SHOULDER SURGERY Left GANGLION CYST EXCISION Left Medical History Medical History Date Comments Hx Other Medical ulises breasr biop sy; Comments: EMB 12/07/2014 - Hx Other Medical GURPREET; Comments: EMB 12/07/2014 - Hx Other Medical left shoulder s urgery; Comments: 12/07/2014 - Hx Other Medical lasix; Comments : [facility] 12/07/2014 - Hypertension Hypertension Gastroesophageal reflux disease GERD Chest pain Shortness of breath Abnormal stress test Sleep apnea Sickle cell trait Iron deficiency Family History Medical History Relation Name Comments Heart disease Father Hypertension Mother Hypertension; Relation Name Status Comments Father Mother Social History Tobacco Use Types Packs/Day Years [...] on file Legal Sex Female 3:40 AM 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 Gender Identity Not on file Sexual Orientation Not on file Obstetrics History Last Filed Vital Signs Vital Sign Reading Time Taken Comments Blood Pressure 120/68 08/07/2024 10:07 AM 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 Pulse 77 08/07/2024 10:07 AM 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 Temperature 36.7 C (98.1 F) 07/27/2023 9:58 AM 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 Respiratory Rate 18 07/27/2023 9:58 AM 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 Oxygen Saturation 98% 08/07/2024 10:07 AM 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 Inhaled Oxygen Concentration - - Weight 98.4 kg (217 lb) 08/07/2024 10:07 AM 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 Height 170.2 cm (5' 7 ) 08/07/2024 10:07 AM 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 Body Mass Index 33.99 08/07/2024 10:07 AM 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 Plan of Treatment Health Maintenance Due Date Last Done Comments Breast Cancer Screening-Mammogram 1963 Colon Cancer Screening-Colonoscopy 1963 Depression Screening 1963 Hepatitis C Screening 1963 DTaP/Tdap/Td Vaccine (1 - Tdap) 1974 Hepatitis B Screening 1981 Regular Well Visit/Exam 18-64 1981 Zoster Vaccine (2 of 2) 06/10/2023 04/15/2023 Covid-19 Vaccine ( season) 2024 04/29/2022, 01/31/2022, 06/02/2021, Additional history exists Influenza Vaccine (Season Ended) 2025 04/15/2023, 04/29/2022, 04/18/2018, Additional history exists Pneumococcal vaccine <65 Aged Out No longer eligible based on patient's age to complete this topic Medical Devices Implanted Type Area Registered Public Surveyor Device Identifier Shelf Expiration Date Model / Serial / Lot [employer] Angio-Seal Vip 6fr Closere Device [id number] - [id number] Implanted:Qty: 1 on 07/27/2023 by Desirae Albert MD at [facility] [employer] [id number] / / Insurance [facility] ACCESS CHOICE Advance Directives For more information, please contact: [phone] * Full Code (Latest Code Status on File) Date Activated Date Inactivated Comments 07/27/2023 3:13 PM 07/28/2023 5:55 PM Care Teams Motor Scooter Repairer Relationship Specialty Start Date End Date Marcy Barrios NP [address] [place] [address] PCP - General Nurse Practitioner 07/15/23
== END 2024-12-08 09:40 | disposition home or self-care (01) ==
LOC: ANHIMG 09:41
PROVIDERS: PCP Nurse Practitioner Family; Visit Provider Obstetrics & Gynecology
DX: Z12.31 Encounter for screening mammogram for malignant neoplasm of breast (principal); R92.8 Other abnormal and inconclusive findings on diagnostic imaging of breast
CPT/HCPCS: 77063; 77067

== ENCOUNTER 2025-01-02 09:50 | Outpatient (CLI) | payer BC, SELFPAY ==
--- NOTE | ~2025-01-02 | MMUS_ITS ---
EXAMINATION: MM diagnostic alyse LT w linda, US breast LT complete HISTORY: Follow-up left breast asymmetries TECHNIQUE: Additional 3-D tomosynthesis images of the left breast were performed and synthetic 2-D im ages were generated. CAD analysis was submitted and interpreted. High resolution complete left breast ultrasound was performed. COMPARISON: Comparison to multiple prior studies sequentially, with oldest reviewed study dated 06/19. BREAST PARENCHYMAL COMPOSITION: Dense: The breasts are heterogeneously dense, which may obscure small masses FINDINGS: MAMMOGRAPHIC FINDINGS: There are no suspicious masses, calcifications or architectural distortion in the left breast. There are benign layering left breast calcifications best seen on medial lateral view. ULTRASOUND: Complete US of all 4 quadrants of the left breast/s and retroareolar region was reviewed. Multiple si mple and complicated cysts present throughout the left breast. No suspicious masses to suggest malign artur. IMPRESSION: 1. No evidence for malignancy in the left breast. Benign findings. 2. Routine yearly screening mammogram and regular clinical breast examination are recommended. BI-RADS Category 2: Benign finding(s). Reviewed, dictated and finalized at location A. IMPRESSION: 1. No evidence for malignancy in the left breast. Benign findings. 2. Routine yearly screening mammogram and regular clinical breast examination a re recommended. BI-RADS Category 2: Benign finding(s).
== END 2025-01-02 09:51 | disposition home or self-care (01) ==
LOC: MICIMG 09:51
PROVIDERS: PCP Nurse Practitioner Family; Visit Provider Obstetrics & Gynecology
DX: R92.8 Other abnormal and inconclusive findings on diagnostic imaging of breast (principal)
CPT/HCPCS: 76641; 77061; 77065; G0279

== ENCOUNTER 2025-04-26 11:25 | Outpatient (CLI) | payer BC, SELFPAY ==
--- NOTE | ~2025-04-26 | CT_ITS ---
EXAMINATION:CT diagnostic chest wo con DATE: 04/26/2025 11:40 INDICATION: Chronic cough. TECHNIQUE: Computed tomography (CT) of the chest was performed without intravenous contrast. Automated exposure control and iterative reconstruction technique were employed. The dose-length product (DLP) was 420.60 mGy-cm. COMPARISON: Chest CT 08/03/2023 FINDINGS: Calcified right lung nodules and calcified right hilar and mediastinal lymph nodes are consistent with old granulomatous disease. No pleural effusion. The heart size is normal. No pericardial effusion. There is diffuse hepatic steatosis. There is mild thoracic spondylosis. IMPRESSION: 1. No etiology for the patient's symptoms. 2. Diffuse hepatic steatosis. Reviewed, dictated and finalized at location E.
== END 2025-04-26 11:26 | disposition home or self-care (01) ==
LOC: MICIMG 11:26
PROVIDERS: PCP Nurse Practitioner Family; Visit Provider Physician Assistant
DX: R05.3 Chronic cough (principal); K76.0 Fatty (change of) liver, not elsewhere classified
CPT/HCPCS: 71250